=== PATIENT | male | born 1965 | race Caucasian/White ===

== ENCOUNTER 2020-02-29 03:11 | Emergency (ER) | payer BC ==
[~2020-02-29] VITALS: Ht 182.9 cm; Wt 93.1 kg
[2020-02-29 03:15] VITALS: BP 164/86
--- NOTE | 2020-02-29 03:25 | NUR ---
PT REPORTS RLQ ABD PAIN THAT BEGAN AT 0230 THIS MORNING. VITAL SIGNS MONITORS APPLIED. SPOUSE AT BEDSIDE. PLACED CALL LIGHT WITHIN REACH.
[2020-02-29] MEDS ORDERED: MORPHINE SULFATE 4 MG/ML, 1ML ONE ×2 (03:56→04:26)
[2020-02-29] MEDS ORDERED: ONDANSETRON 2MG/ML, 2ML ONE (03:57)
[2020-02-29] MEDS ORDERED: ONDANSETRON 2MG/ML, 2ML IVPush ONE (04:00)
[2020-02-29] MEDS ORDERED: SODIUM CHLORIDE FLUSH 10ML SYR IVF ONE (04:00)
[2020-02-29] MEDS: MORPHINE SULFATE 4 MG/ML, 1ML IVPush PRN ×2 (04:07→04:29)
[2020-02-29 04:22] LABS: BASOPHILS # (AUTO) 0.04 x10^3/uL (0-0.1); BASOPHILS % (AUTO) 1 % (0-1); EOSINOPHILS # (AUTO) 0.12 x10^3/uL (0-0.4); EOSINOPHILS % (AUTO) 2 % (1-7); LYMPHOCYTES # (AUTO) 2.37 x10^3/uL (1-3.4); LYMPHOCYTES % (AUTO) 39 % (22-44); MD NO; MEAN CORPUSCULAR HEMOGLOBIN 31.7 pg (27.5-34.5); MEAN CORPUSCULAR HGB CONC 33.8 g/dL (33.2-36.2); MEAN CORPUSCULAR VOLUME 93.8 fL (81-97); MEAN PLATELET VOLUME 9.8 fL (7.4-10.4); MONOCYTES # (AUTO) 0.51 x10^3/uL (0.2-0.8); MONOCYTES % (AUTO) 8 % (2-9); NEUTROPHILS # (AUTO) 3.03 x10^3/uL (1.8-6.8); NEUTROPHILS % (AUTO) 50 % (42-75); PLATELET COUNT 175 x10^3/uL (130-400); RED BLOOD COUNT 4.97 x10^6/uL (4.38-5.82); RED CELL DISTRIBUTION WIDTH 13.1 % (9.4-14.8)
[2020-02-29 04:30] LABS: ALANINE AMINOTRANSFERASE 25 U/L (12-78); ALBUMIN 4.2 g/dL (3.4-5.0); ANION GAP 6 mmol/L (5-15); CHLORIDE 108 mmol/L (98-107); CREATININE 1.46 mg/dL (0.7-1.3)
[2020-02-29 04:33] LABS: ALKALINE PHOSPHATASE 54 U/L (45-117); TOTAL PROTEIN 7.4 g/dL (6.4-8.2)
[2020-02-29 05:11] LABS: MICROSCOPIC AUTO
== END 2020-02-29 06:03 | disposition home or self-care (01) ==
LOC: ED 04:27
DX: N20.1 Calculus of ureter (principal); R10.31 Right lower quadrant pain; R11.2 Nausea with vomiting, unspecified
CPT/HCPCS: 36415; 74176; 80053; 81001; 83690; 85025; 96374; 96375; 99284; J2270; J2405